=== PATIENT | female | born 1970 | race Hispanic/Latino ===

== ENCOUNTER 2024-05-24 02:27 | Emergency (ER) | payer MEDICARE ==
[~2024-05-24] VITALS: Ht 162.6 cm; Wt 75.7 kg
[~2024-05-24 02:27] MED LIST: IBUPROFEN200 MG PO; TYLENOL325 MG PO
[2024-05-24 02:47] VITALS: PULSE 99; RESP 20; TEMP 98.4
[2024-05-24] MEDS ORDERED: DOXYCYCLINE HY100 MG PO (03:38)
[2024-05-24] MEDS ORDERED: CLINDAMYCIN HC300 MG PO (03:39)
[2024-05-24] MEDS ORDERED: CEFTRIAXONE 1 GM VIAL ONE (03:46)
[2024-05-24] MEDS: CEFTRIAXONE 1 GM VIAL IM ONE (03:47)
[2024-05-24 04:12] VITALS: BP 128/68; PULSE 94; RESP 18; TEMP 98.2; O2SAT 97
== END 2024-05-24 04:05 | disposition home or self-care (01) ==
LOC: FSED 02:31
DX: L53.9 Erythematous condition, unspecified (principal); L03.211 Cellulitis of face; E11.9 Type 2 diabetes mellitus without complications; I10 Essential (primary) hypertension; E78.5 Hyperlipidemia, unspecified; M32.9 Systemic lupus erythematosus, unspecified; M06.9 Rheumatoid arthritis, unspecified; E03.9 Hypothyroidism, unspecified; J45.909 Unspecified asthma, uncomplicated
CPT/HCPCS: 99283; J0696